=== PATIENT | female | born 1990 | race Caucasian/White ===

== ENCOUNTER 2017-08-07 08:00 | Outpatient (CLI) | payer BC | END 2017-08-07 08:01 | disposition home or self-care (01) | LOC: LAB.R 08:00 | PROVIDERS: ATTEND Obstetrics & Gynecology | DX: Z11.3 Encounter for screening for infections with a predominantly sexual mode of transmission (principal) | CPT/HCPCS: 87491; 87591 ==

== ENCOUNTER 2017-10-08 09:49 | Outpatient (CLI) | payer OTHER ==
[2017-10-08 14:22] VITALS: BP 107/65
--- NOTE | 2017-11-01 12:31 | PROVIDER PROGRESS NOTE ---
Subjective - Prog Note Date Prog Note Date: 10/08/17 Prog Note Time: 12:00 - Subjective Pt reports feeling: Improved (Pamela is a 27-year-old CaucasianPrimigravida at 21 weeks 4 days gestation who experienced a fall that did not involve her abdomen or uterus. She has no suspicion of leaking fluid and no regular uterine contractions.She was evaluated and there was no uterine tenderness or contractions noted. heart tracing category 1. Evaluation the patient finds no orthopedic or significant injury. Maternal blood type Rh+. Patient instructed to keep her next routine appointment. Warning sign and callback instructions given.)
== END 2017-10-08 11:55 | disposition home or self-care (01) ==
LOC: WFO 09:49 → FBP 10:20 → WFO 11:55
PROVIDERS: ATTEND Obstetrics & Gynecology
DX: O9A.212 Injury, poisoning and certain other consequences of external causes complicating pregnancy, second trimester (principal); Z3A.21 21 weeks gestation of pregnancy
CPT/HCPCS: 99213

== ENCOUNTER 2017-10-18 07:28 | Outpatient (CLI) | payer OTHER ==
--- NOTE | 2017-10-19 08:46 | Ultrasound Report ---
OB ULTRASOUND: 10/18/2017 CLINICAL INDICATION: anatomy. COMPARISON: 07/04/2017. TECHNIQUE: Real-time scanning was performed with c s s representative static images obtained. LAST MENSTRUAL PERIOD 05/10/2017 CLINICAL AGE 23 weeks 0 days US AGE 23 weeks 0 days EFW HADLOCK 578 grams EFW% HADLOCK 55% HEART RATE 154 bpm EDC 02/14/2018 US EDC 02/14/2018 BPD HADLOCK 22 weeks 3 days; Mean mm 54 HC HADLOCK 22 weeks 6 days; Mean mm 208 AC HADLOCK 22 weeks 6 days; Mean mm 180 FL HADLOCK 24 weeks 0 days; Mean mm 43 PRESENTATION cephalic PLACENTAL LOCATION anterior CERVICAL LENGTH TA 4.2 cm AMNIOTIC FLUID 13.9 cm, subjectively normal; MVP 4.6 cm FINDINGS There is a single viable intrauterine gestation, in cephalic presentation. heart rate is 154 BPM. The placenta is anterior, without evidence of previa. Amniotic fluid volume is subjectively normal, with the deepest pocket of 4.6 cm. By size, the fetus measures 23 weeks 0 days (23 weeks 0 days by LMP). The following anatomic structures were visualized and appear normal: The intracranial contents, including the ventricles and posterior fossa; the lips and orbits; the spine; the heart, including 4 chamber view and outflow tracts, and diaphragm; the abdominal contents, including the stomach, the bilateral kidneys, and urinary bladder, as well as a normal 3 vessel cord insertion; 4 limbs. Note is made of an echogenic focus in the left ventricle. No free fluid or adnexal lesion is appreciated. IMPRESSION: SINGLE VIABLE INTRAUTERINE GESTATION, WITH EXPECTED GROWTH FROM PREVIOUS SONOGRAM. SOLITARY ECHOGENIC FOCUS IN THE LEFT VENTRICLE. OTHERWISE NORMAL ANATOMIC SURVEY. ONE SOFT MARKER FOR ANEUPLOIDY IS DETECTED. RECOMMEND CORRELATION WITH MATERNAL AGE, ETHNICITY, AND ANEUPLOIDY RISK ASSESSMENT RESULTS SUCH SERUM SCREENING OR CELL FREE DNA TESTING TO HELP GUIDE FURTHER MANAGEMENT. TD: 10/18/2017 16:03 MADYSON
== END 2017-10-18 07:29 | disposition home or self-care (01) ==
LOC: DI 07:28
PROVIDERS: ATTEND Obstetrics & Gynecology
DX: Z36.0 Encounter for antenatal screening for chromosomal anomalies (principal)
CPT/HCPCS: 76811

== ENCOUNTER 2017-11-08 16:34 | Outpatient (CLI) | payer SELFPAY | END 2017-11-08 16:35 | disposition home or self-care (01) | LOC: LAB 16:34 | PROVIDERS: ATTEND Obstetrics & Gynecology | DX: O35.1XX0 Maternal care for (suspected) chromosomal abnormality in fetus, not applicable or unspecified (principal) | CPT/HCPCS: 36415 ==

== ENCOUNTER 2017-11-30 09:46 | Outpatient (CLI) | payer OTHER ==
[2017-11-30 12:49] LABS: BILIRUBIN,URINE NEGATIVE (NEGATIVE); GLUCOSE, URINE (UA) NEGATIVE (NEGATIVE); KETONES,URINE (UA) NEGATIVE (NEGATIVE); LEUKOCYTE ESTERASE, URINE NEGATIVE (NEGATIVE); NITRITE,URINE NEGATIVE (NEGATIVE); OCCULT BLOOD,URINE NEGATIVE (NEGATIVE); PH,URINE 6.5 PH (5.0-7.5); PROTEIN,URINE NEGATIVE (NEGATIVE); UROBILINOGEN,URINE 0.2 (NORMAL) E.U./dL (NORMAL)
[2017-11-30 12:50] LABS: CLARITY,URINE CLEAR (CLEAR)
[2017-11-30 12:54] LABS: BASOPHILS % (AUTO) 0.4 %; EOSINOPHILS # (AUTO) 0.2 10^3/uL (0.0-0.7); EOSINOPHILS % (AUTO) 1.7 %; HGB - HEMOGLOBIN 10.4 g/dL (12.0-16.0); LYMPHOCYTES # (AUTO) 2.1 10^3/uL (1.5-3.5); LYMPHOCYTES % (AUTO) 18.9 %; MEAN CORPUSCULAR HEMOGLOBIN 33.1 pg (27.0-31.0); MEAN CORPUSCULAR HGB CONC 34.9 g/dL (32.0-36.0); MEAN CORPUSCULAR VOLUME 94.7 fL (81.0-99.0); MEAN PLATELET VOLUME 8.6 fL (7.9-10.8); MONOCYTES # (AUTO) 0.6 10^3/uL (0.0-1.0); MONOCYTES % (AUTO) 5.4 %; NEUTROPHILS # (AUTO) 8.1 10^3/uL (1.5-6.6); NEUTROPHILS % (AUTO) 73.6 %; PLT - PLATELET COUNT 262 10^3/uL (130-450); RED BLOOD COUNT 3.15 10^6/uL (4.20-5.40); RED CELL DISTRIBUTION WIDTH 13.6 % (12.0-15.0)
[2017-11-30 12:57] LABS: RBC,URINE 0-5 /HPF (0-5); SQUAMOUS EPITHELIAL CELL,UR FEW Squamous (<= Few)
[2017-11-30 12:58] LABS: BACTERIA,URINE Rare /HPF (None Seen)
[2017-12-01 13:21] LABS: HIV AG/AB 4TH GEN NON-REACTIVE (NON-REACTIVE)
[2017-12-01 13:22] LABS: HEPATITIS B SURFACE ANTIGEN NON-REACTIVE (NON-REACTIVE)
== END 2017-11-30 09:47 | disposition home or self-care (01) ==
LOC: LAB.N 09:46
PROVIDERS: ATTEND Obstetrics & Gynecology
DX: Z36.9 Encounter for antenatal screening, unspecified (principal)
CPT/HCPCS: 36415; 81001; 81599; 82950; 85025; 86592; 86762; 86850; 86900; 86901; 87340; 87389

== ENCOUNTER 2017-12-19 13:59 | Emergency (ER) | payer OTHER ==
[2017-12-19 14:22] VITALS: BP 112/71
[2017-12-19] MEDS ORDERED: SODIUM CHLORIDE 0.9% 1,000 ML IV ONE (14:29)
[2017-12-19] MEDS ORDERED: ONDANSETRON 4 MG/2 ML VIAL IVP STA (14:29)
[2017-12-19] MEDS ORDERED: LOPERAMIDE 2 MG CAPSULE PO STA (14:29)
--- NOTE | 2017-12-19 14:34 | ED Physician Documentation ---
PD HPI NVD - Stated complaint Stated Complaint: N/V/D 32 WKS PREG - Chief complaint Chief Complaint: Abd Pain - History obtained from History obtained from: Patient - History of Present Illness Timing - onset: Other ( at 32 weeks gestation with vomiting and diarrhea for the last 3 days, there is no pain or fever with it. She started to feel little weak and dizzy with it. She also notes slightly decreased kicking , not so much in frequency but in force. There is no vaginal bleeding or cramping, no fluid loss.) Review of Systems Ten Systems: 10 systems reviewed and negative Constitutional: reports: Fatigue. denies: Fever, Chills Respiratory: denies: Dyspnea, Cough GI: reports: Nausea, Vomiting, Diarrhea. denies: Abdominal Pain PD PAST MEDICAL HISTORY - Past Medical History Cardiovascular: None Respiratory: None Neuro: None Endocrine/Autoimmune: None GI: None ELECTRICIAN SHIP: None : None HEENT: None Psych: ADD/ADHD Musculoskeletal: None Derm: None - Past Surgical History Past Surgical History: No - Present Medications Home Medications: Ambulatory Orders Medication Instructions Recorded Confirmed Acetaminophen [Tylenol] 325 mg PO PRN PRN 12/19/17 12/19/17 Pnv95/Ferrous Fumarate/FA 1 tab PO DAILY 12/19/17 12/19/17 [ Tablet] - Allergies Allergies/Adverse Reactions: Allergies Allergy/AdvReac Type Severity Reaction Status Date / Time No Known Drug Allergies Allergy Verified 12/19/17 14:22 - Social History Does the pt smoke?: Yes Smoking Status: Current every day smoker Does the pt drink ETOH?: Yes Does the pt have substance abuse?: No - Immunizations Immunizations are current?: Yes - POLST Patient has POLST: No PD ED PE NORMAL - Vitals Vital signs reviewed: Yes - General General: Alert and oriented X 3, No acute distress - Cardiac Cardiac: RRR, No murmur - Respiratory Respiratory: No respiratory distress, Clear bilaterally - Abdomen Abdomen: Normal bowel sounds, Soft, Non tender, Other (Gravid belly with bedside ultrasound showing single live intrauterine with heart rate of 140.) - Extremities Extremities: No edema, No calf tenderness / cord - Neuro Neuro: Alert and oriented X 3, Normal speech Results - Vitals Vitals: Vital Signs - 24 hr 12/19/17 14:19 Temperature 36.8 C Heart Rate 71 Respiratory 16 Rate Blood Pressure 112/71 O2 Saturation 98 Oxygen O2 Source Room air - Labs Labs: Laboratory Tests 12/19/17 12/19/17 12/19/17 14:35 14:35 15:15 WBC 12.6 H RBC 3.47 L Hgb 10.9 L Hct 31.7 L MCV 91.5 MCH 31.6 H MCHC 34.5 RDW 14.1 Plt Count 270 MPV 7.6 L Neut # 9.7 H Lymph # 2.1 [place] # 0.7 Eos # 0.1 Baso # 0.0 Absolute Nucleated RBC 0.00 Nucleated RBC % 0.0 Sodium 133 L Potassium 3.5 Chloride 104 Carbon Dioxide 22 Anion Gap 7.0 BUN 5 L Creatinine 0.5 Estimated GFR (MDRD) 148 Glucose 103 H Calcium 8.5 Total Bilirubin 0.8 AST 45 H ALT 28 Alkaline Phosphatase 88 Total Protein 7.0 Albumin 3.4 Globulin 3.6 Albumin/Globulin Ratio 0.9 L Lipase 14 L Urine Color YELLOW Urine Clarity CLEAR Urine pH 8.0 H Ur Specific [place] 1.010 Urine Protein 30 H Urine Glucose (UA) NEGATIVE Urine Ketones 15 H Urine Occult Blood NEGATIVE Urine Nitrite NEGATIVE Urine Bilirubin NEGATIVE Urine Urobilinogen 0.2 (NORMAL) Ur Leukocyte Esterase NEGATIVE Urine RBC None Seen Urine WBC 0-3 Ur Epithelial Cells RARE Transitional Ur Squamous Epith Cells FEW Squamous Urine Bacteria Rare Urine Mucus Few Strands Ur Microscopic Review INDICATED Urine Culture Comments NOT INDICATED Urine Opiates Screen NEGATIVE Ur Oxycodone Screen NEGATIVE Urine Methadone Screen NEGATIVE Ur Propoxyphene Screen NEGATIVE Ur Barbiturates Screen NEGATIVE Ur Tricyclics Screen NEGATIVE Ur Phencyclidine Scrn NEGATIVE Ur Amphetamine Screen NEGATIVE U Methamphetamines Scrn NEGATIVE U Benzodiazepines Scrn NEGATIVE Urine Cocaine Screen NEGATIVE U Cannabinoids Screen POSITIVE H PD MEDICAL DECISION MAKING - ED course ED course: 27-year-old G1 at 32 weeks gestation who presents with what sounds like gastroenteritis, monitoring was done reported to me as having every 2-3 minute contractions, OB was contacted and she will be going in observation on labor and delivery under the care of Dr. Hernandez for a labor evaluation. From the perspective of her apparent gastroenteritis she was feeling much better after therapy here. Departure - Departure Disposition: ED Place in Observation Clinical Impression: contractions Vomiting Qualifiers: Vomiting type: unspecified Vomiting Intractability: non-intractable Nausea presence: with nausea Qualified Code(s): R11.2 - Nausea with vomiting, unspecified Diarrhea Qualifiers: Diarrhea type: presumed infectious Qualified Code(s): R19.7 - Diarrhea, unspecified Condition: Stable Discharge Date/Time: 12/19/17 15:26
[2017-12-19 14:46] LABS: BASOPHILS % (AUTO) 0.3 %; EOSINOPHILS # (AUTO) 0.1 10^3/uL (0.0-0.7); EOSINOPHILS % (AUTO) 0.5 %; HGB - HEMOGLOBIN 10.9 g/dL (12.0-16.0); LYMPHOCYTES # (AUTO) 2.1 10^3/uL (1.5-3.5); LYMPHOCYTES % (AUTO) 16.7 %; MEAN CORPUSCULAR HEMOGLOBIN 31.6 pg (27.0-31.0); MEAN CORPUSCULAR HGB CONC 34.5 g/dL (32.0-36.0); MEAN CORPUSCULAR VOLUME 91.5 fL (81.0-99.0); MEAN PLATELET VOLUME 7.6 fL (7.9-10.8); MONOCYTES # (AUTO) 0.7 10^3/uL (0.0-1.0); MONOCYTES % (AUTO) 5.7 %; NEUTROPHILS # (AUTO) 9.7 10^3/uL (1.5-6.6); NEUTROPHILS % (AUTO) 76.8 %; PLT - PLATELET COUNT 270 10^3/uL (130-450); RED BLOOD COUNT 3.47 10^6/uL (4.20-5.40); RED CELL DISTRIBUTION WIDTH 14.1 % (12.0-15.0); WHITE BLOOD COUNT 12.6 x10^3/uL (4.8-10.8)
[2017-12-19 14:57] LABS: ALBUMIN 3.4 g/dL (3.2-5.5); ALBUMIN/GLOBULIN RATIO 0.9 (1.0-2.2); BILIRUBIN,TOTAL 0.8 mg/dL (0.2-1.0); CALCIUM 8.5 mg/dL (8.5-10.3); CREATININE 0.5 mg/dL (0.4-1.0)
[2017-12-19 15:23] LABS: MUDS CUTOFF CONCENTRATIONS CUTOFF CONC BELOW:
[2017-12-19 15:26] LABS: BILIRUBIN,URINE NEGATIVE (NEGATIVE); GLUCOSE, URINE (UA) NEGATIVE (NEGATIVE); KETONES,URINE (UA) 15 mg/dL (NEGATIVE); LEUKOCYTE ESTERASE, URINE NEGATIVE (NEGATIVE); NITRITE,URINE NEGATIVE (NEGATIVE); OCCULT BLOOD,URINE NEGATIVE (NEGATIVE); PROTEIN,URINE 30 mg/dL (NEGATIVE); UROBILINOGEN,URINE 0.2 (NORMAL) E.U./dL (NORMAL)
[2017-12-19 15:30] LABS: CLARITY,URINE CLEAR (CLEAR)
[2017-12-19 15:39] LABS: BACTERIA,URINE Rare /HPF (None Seen); EPITHELIAL CELLS,UR RARE Transitional /HPF (<= Few); MUCUS,URINE Few Strands; RBC,URINE None Seen /HPF (0-5); SQUAMOUS EPITHELIAL CELL,UR FEW Squamous (<= Few)
[2017-12-19 15:40] LABS: AMPHETAMINE SCREEN,URINE NEGATIVE (NEGATIVE); BENZODIAZEPINES SCREEN, URINE NEGATIVE (NEGATIVE); COCAINE SCREEN URINE NEGATIVE (NEGATIVE); METHADONE SCREEN, URINE NEGATIVE (NEGATIVE); METHAMPHETAMINES SCREEN, URINE NEGATIVE (NEGATIVE); OPIATE SCREEN, URINE NEGATIVE (NEGATIVE); OXYCODONE SCREEN, URINE NEGATIVE (NEGATIVE); PROPOXYPHENE SCREEN, URINE NEGATIVE (NEGATIVE); TRICYCLIC ANTIDEPRESSANT,URINE NEGATIVE (NEGATIVE)
== END 2017-12-19 15:26 ==
LOC: ED 13:59
DX: O60.03 Preterm labor without delivery, third trimester (principal); O36.8130 Decreased fetal movements, third trimester, not applicable or unspecified; O99.333 Smoking (tobacco) complicating pregnancy, third trimester; Z3A.32 32 weeks gestation of pregnancy; R11.2 Nausea with vomiting, unspecified; R19.7 Diarrhea, unspecified
CPT/HCPCS: 36415; 80053; 80306; 81001; 81003; 83690; 85025; 87086; 96374; 99283; 99284

== ENCOUNTER 2017-12-19 15:15 | Observation (INO) | payer OTHER ==
[2017-12-19] MEDS ORDERED: BETAMETHASONE 30 MG/5 ML VIAL IM ONE (15:39)
[2017-12-19] MEDS ORDERED: LACTATED RINGERS 1,000 ML IV SCH ×3 (16:00→21:09)
[2017-12-19] MEDS ORDERED: SODIUM CHLORIDE FLUSH 0.9% 10 ML SYRINGE IVP PRN (16:46)
[2017-12-19] MEDS ORDERED: ACETAMINOPHEN 325 MG TABLET PO PRN (16:46)
[2017-12-19] MEDS ORDERED: ONDANSETRON ODT 4 MG TABLET TL PRN (16:46)
[2017-12-19] MEDS ORDERED: SODIUM CHLORIDE FLUSH 0.9% 10 ML SYRINGE IVP SCH (17:00)
--- NOTE | 2017-12-19 17:03 | Ultrasound Preliminary Report ---
Exam: US OB TRANSVAGINAL IMPRESSION: 1. Diego live intrauterine with gestational age 31 weeks 6 days based on establish KAROL. 2. Closed cervix measures 3.6 cm on transvaginal imaging. [facility] SITE ID: [id number]
--- NOTE | 2017-12-19 17:27 | Ultrasound Report ---
EXAM: LIMITED OBSTETRICAL ULTRASOUND EXAM DATE: 12/19/2017 04:15 PM. CLINICAL HISTORY: ctx. COMPARISON: 10/18/2017. TECHNIQUE: Real-time sonographic evaluation of the fetus performed by the card runner. Multiple repre sentative static images were saved for review. Additional transvaginal imaging to more accurately annie luate cervical length/placental position/etc. DATING: Established EGA 31 weeks 6 days with KAROL 02/14/2018. GENERAL EVALUATION Diego . Cardiac activity: 127 bpm. movement: Not evaluated. Presentation: Cephalic. Placenta: Anterior placenta. Incompletely characterized. Amniotic fluid: Not evaluated. ANATOMY No gross abnormality. MATERNAL STRUCTURES Closed cervix measures 3.6 cm on the transvaginal imaging. IMPRESSION: 1. Diego live intrauterine with gestational age 31 weeks 6 days based on establish KAROL. 2. Closed cervix measures 3.6 cm on transvaginal imaging. [facility] Referring Provider Line: [phone] SITE ID: [id number]
--- NOTE | 2017-12-19 18:05 | HISTORY & PHYSICAL EXAMINATION ---
DATE OF SERVICE: 12/19/2017 Physician: Fer Hernandez MD DIAGNOSIS: Unremitting nausea and vomiting or dehydration, diarrhea, probable viral gastroenteritis; Uterine Contractions. HISTORY OF PRESENT ILLNESS: Pamela Forde is a 27-year-old primigravida who reports approximately 24 hours of diarrhea, nausea and nonbilious, nonbloody vomiting. She reports no macey abdominal pain or fever. She does feel weak and has some orthostatic dizziness. Her parents were visiting from out of town and had viral enteritis roughly a week ago. She is discovered to be mary jane. She has no pelvic pressure, loss of mucus plug or suspected rupture of membranes. [facility] with a total of 5 visits thus far. Her EDC is 01/14/2018 with an estimated gestational age of 31 weeks and 6 days. The patient evaluated in the emergency room and given Imodium and Zofran. PAST MEDICAL HISTORY: The patient denies gallbladder disease, history of renal lithiasis, history of depression. Reformed smoker. PAST SURGICAL HISTORY: No surgical problems. FAMILY HISTORY: No inheritable diseases. SOCIAL HISTORY: Recently . Reformed smoker. No drug or alcohol use. 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 Denies fever or rigors. HEENT: Negative. RESPIRATORY: Negative. CARDIAC: Negative. GASTROINTESTINAL: Nausea, vomiting, diarrhea as noted above. NEUROLOGIC: Negative. SKIN: Negative. MUSCULOSKELETAL: Negative. PHYSICAL EXAMINATION GENERAL: The patient seems ill. VITAL SIGNS: Posted. HEENT: Dry mucous membranes. Poor skin tone. NECK: Supple. No thyromegaly. LUNGS: Clear to auscultation. CARDIOVASCULAR: Regular flow murmur. No rub or gallop. ABDOMEN: Hyperactive bowel sounds. No hepatosplenomegaly. No remarkable present tenderness. UTERUS: Appropriate size. Mild contractions every 3 minutes. Normal resting tone. EXTERNAL GENITALIA: With no lesions. VAGINA: No blood or fluid. CERVIX: Soft anterior, 30% effaced, closed, -1 to 0 station. GENITOURINARY: No signs or symptoms suggestive of labor. EXTREMITIES: No [place]. Normal range of motion. No tenderness or edema noted. DERMATOLOGIC: No lesions. LABORATORY FINDINGS: fibronectin negative. Mild leukocytosis. Lipase elevated. ASSESSMENT: The patient is suspected to have a viral gastroenteritis with resultant dehydration triggering labor contractions. fibronectin is negative, which gives some reassurance; however, clinical exam shows effacement and changes in cervical position that warrants caution. Await cervical length measurements. PLAN 1. Begin rehydration with lactated ringers, 1 liter bolus, followed by 200 an hour. 2. Begin observation. 3. Await cervical length measurements. 4. Supportive care. TD: 12/19/2017 18:04 corrected acct on 12/21/2017 jneelle MTDD
--- NOTE | 2017-12-19 18:48 | PROVIDER PROGRESS NOTE ---
Subjective - Prog Note Date Prog Note Date: 12/19/17 Prog Note Time: 18:45 - Subjective Pt reports feeling: No change (Patient continues to feel a "rolling sensation inside." She denies spastic pain or macey uterine contractions. There is been no reported leakage of fluid. She has no headaches visual changes or edema. She feels improved after the first liter fluid) Objective - Vital Signs/Intake & Output Vital Signs: Vital Signs x48h Temp Pulse Resp BP Pulse Ox 12/19/17 16:56 98.2 F 73 16 112/58 L 98 Intake & Output: Intake & Output 12/16/17 12/17/17 12/18/17 12/19/17 23:59 23:59 23:59 23:59 Intake Total 1000 Output Total 300 Balance 700 - Lab Results Other Labs: Lab Results x24hrs 12/19/17 Range/Units 15:45 Fibronectin NEGATIVE (NEGATIVE) Physical Exam - Physical Exam General: positive: No acute distress, Alert HEENT: positive: Moist mucous membranes Neck: positive: Supple w/out meningeal sx Abdomen: positive: Normal Bowel sounds, Other (Uterus has normal resting tone and minimal contractions. External monitor shows a reactive fetus with heart tones 135 baseline however there are contractions noted every 3 minutes) Female : positive: Normal external, Dilated cervix (Cervix is now 1 cm dilated 50% effaced and -1 station. This is a subtle change from her baseline exam), Monitor Worker present Extremities: positive: Normal ROM, No pedal edema Skin: positive: Warm and dry Neurologic: positive: Alert and Oriented X 3, Normal motor/no weakness, Normal Sensation, Normal Speech Assessment/Plan - Assessment/Plan Assessment: Mrs Forde has a 31 week 6 day gestation and continues to have regular uterine contractions albeit mild by palpation. Since her baseline exam, there are changes in the cervix suggestive of effective contractions. There is no obvious source of infection to explain her contractions. fibronectin is negative, a good prognosticator. Likewise, cervical length is 3.6 cm which is normal. Note these measurements were taken at 1630 and 2-1/2 hours have elapsed. Beyond IV fluid hydration, Tocolysis is now required. Patient has received her first dose of betamethasone. Plan: 1. Terbutaline 0.25 subcu every 30 minutes for 3 doses total if necessary 2. Nifedipine 20 mg regular release oral with nifedipine 60 mg slow release. 3. Continued close observation and repeat exam
[2017-12-19] MEDS ORDERED: TERBUTALINE 1 MG/ML VIAL SUBQ ONE (18:49)
[2017-12-19] MEDS ORDERED: TERBUTALINE 1 MG/ML VIAL SUBQ SCH (19:05)
[2017-12-19] MEDS ORDERED: NIFEdipine 10 MG CAPSULE PO ONE (20:00)
[2017-12-19] MEDS ORDERED: NIFEdipine 10 MG CAPSULE PO SCH ×2 (20:00)
[2017-12-19] MEDS ORDERED: NIFEdipine ER 30 MG TABLET PO SCH (20:00)
--- NOTE | 2017-12-19 21:41 | PROVIDER PROGRESS NOTE ---
Subjective - Prog Note Date Prog Note Date: 12/19/17 Prog Note Time: 21:40 - Subjective Pt reports feeling: Improved Subjective: Patient no longer reports contractions. There is no suspected leakage of fluid. Her nausea and vomiting have ceased. She feels well overall and strongly desires discharge home. She has reliable transportation and pledges to return if contractions re-ensue Objective - Vital Signs/Intake & Output Vital Signs: Vital Signs x48h Temp Pulse Resp BP Pulse Ox 12/19/17 18:47 85 16 126/69 98 12/19/17 16:56 98.2 F 73 16 112/58 L 98 Intake & Output: Intake & Output 12/16/17 12/17/17 12/18/17 12/19/17 23:59 23:59 23:59 23:59 Intake Total 1000 Output Total 300 Balance 700 - Lab Results Other Labs: Lab Results x24hrs 12/19/17 Range/Units 15:45 Fibronectin NEGATIVE (NEGATIVE) Exam - Exam Vital Signs: Vital Signs (72 hours) 12/19/17 12/19/17 16:56 18:47 Temperature 98.2 F Heart Rate [ 73 85 Monitoring electrodes] Respiratory 16 16 Rate Blood Pressure 112/58 L 126/69 [Left Brachial artery] O2 Saturation 98 98 General: Alert, Oriented x3, No acute distress HEENT: Mucous membr. moist/pink Abdomen: Soft, Other (Careful palpation of the abdominal wall and uterus find no uterine contractions. Tocodynamometer also shows no uterine contractions category 1 strip baseline 140) Extremities: No edema Skin: No rashes Neurological: Normal speech, Sensation intact Psych/Mental Status: Mental status NL, Mood NL Assessment/Plan - Assessment/Plan Assessment: Patient's nausea and vomiting have ceased and her fluid balance is been corrected with IV boluses. Her contractions of also ceased with the aid of terbutaline and nifedipine. At this point patient is stable and could be discharged. Plan: 1. Discharge home this evening. 2. Patient to return tomorrow for second dose of betamethasone and NST. 3. Warning sign and callback instructions given. 4. I chose not to continue nifedipine or terbutaline. 5. Patient was given a work excuse until Sunday.
[2017-12-19 22:24] VITALS: BP 117/61
[2017-12-20] MEDS ORDERED: POLYETHYLENE GLYCOL 3350 17 GM PACKET PO SCH (09:00)
[2017-12-20] MEDS ORDERED: BETAMETHASONE 30 MG/5 ML VIAL IM ONE (17:00)
== END 2017-12-19 22:00 | disposition home or self-care (01) ==
LOC: WFO 15:15 → FBP 15:19 → WFO 16:45 → FBP 16:46
PROVIDERS: ADMIT Obstetrics & Gynecology; ATTEND Obstetrics & Gynecology
DX: O60.03 Preterm labor without delivery, third trimester (principal); O21.2 Late vomiting of pregnancy; O99.283 Endocrine, nutritional and metabolic diseases complicating pregnancy, third trimester; Z3A.31 31 weeks gestation of pregnancy; E86.0 Dehydration; Z87.891 Personal history of nicotine dependence; O36.8130 Decreased fetal movements, third trimester, not applicable or unspecified; R19.7 Diarrhea, unspecified
CPT/HCPCS: 36415; 76817; 80053; 80306; 81001; 82731; 83690; 85025; 96361; 96372; 96374; 99214; 99284; A9270; G0378; J7120; 81003; 87086; 96366; 99283

== ENCOUNTER 2017-12-20 17:11 | Outpatient (CLI) | payer OTHER ==
[2017-12-20 17:55] VITALS: BP 102/72
[2017-12-20] MEDS ORDERED: BETAMETHASONE 30 MG/5 ML VIAL IM ONE (18:00)
== END 2017-12-20 18:26 | disposition home or self-care (01) ==
LOC: WFO 17:11 → FBP 17:14 → WFO 18:26
PROVIDERS: ATTEND Obstetrics & Gynecology
DX: O60.03 Preterm labor without delivery, third trimester (principal); Z3A.32 32 weeks gestation of pregnancy
CPT/HCPCS: 59025; 87077; 87081; 96372

== ENCOUNTER 2017-12-24 08:00 | Outpatient (CLI) | payer OTHER | END 2017-12-24 23:59 | LOC: LAB.R 08:00 | PROVIDERS: ATTEND Obstetrics & Gynecology | DX: R82.90 Unspecified abnormal findings in urine (principal) | CPT/HCPCS: 87086 ==

== ENCOUNTER 2018-02-10 16:58 | Inpatient (IN) | payer OTHER ==
[2018-02-10 17:46] LABS: BASOPHILS % (AUTO) 0.3 %; EOSINOPHILS # (AUTO) 0.1 10^3/uL (0.0-0.7); EOSINOPHILS % (AUTO) 1.1 %; HGB - HEMOGLOBIN 10.2 g/dL (12.0-16.0); LYMPHOCYTES # (AUTO) 2.2 10^3/uL (1.5-3.5); LYMPHOCYTES % (AUTO) 21.4 %; MEAN CORPUSCULAR HEMOGLOBIN 30.9 pg (27.0-31.0); MEAN CORPUSCULAR HGB CONC 33.8 g/dL (32.0-36.0); MEAN CORPUSCULAR VOLUME 91.3 fL (81.0-99.0); MEAN PLATELET VOLUME 8.6 fL (7.9-10.8); MONOCYTES # (AUTO) 0.6 10^3/uL (0.0-1.0); MONOCYTES % (AUTO) 5.9 %; NEUTROPHILS # (AUTO) 7.2 10^3/uL (1.5-6.6); NEUTROPHILS % (AUTO) 71.3 %; PLT - PLATELET COUNT 263 10^3/uL (130-450); RED BLOOD COUNT 3.31 10^6/uL (4.20-5.40); RED CELL DISTRIBUTION WIDTH 16.1 % (12.0-15.0); WHITE BLOOD COUNT 10.1 x10^3/uL (4.8-10.8)
[2018-02-10] MEDS ORDERED: SODIUM CHLORIDE FLUSH 0.9% 10 ML SYRINGE ONE (18:57)
[2018-02-10] MEDS: SODIUM CHLORIDE FLUSH 0.9% 10 ML SYRINGE ONE (19:32)
[2018-02-10] MEDS ORDERED: fentaNYL 250 MCG/5 ML VIAL IVP PRN (20:42)
[2018-02-10] MEDS ORDERED: AMPICILLIN 2 GM in SODIUM CHLORIDE 0.9% MINIBAG 100 ML IV SCH ×4 (21:00)
--- NOTE | 2018-02-10 21:01 | HISTORY & PHYSICAL EXAMINATION ---
Chief Complaint - Chief Complaint Chief Complaint: Contractions History of Present Illness - Admitted From Admitted From:: Home to [facility] - History Obtained From Records Reviewed: YES History obtained from: PATIENT Exam Limitations: NONE - History of Present Illness HPI Comment/Other: 27 y.o. EDC 02/14/18 EGA 39 3/7 weeks admitted in early labor at 3/70/-3/VTX , BOWI (2209 hours) with Category I tracing, GBS +. She was previously scheduled to come in for cervical ripening but found to be mary jane q2-4 min. spontaneously and with favorable cervix. Admitted for delivery. PNC has been essentially unremarkable except for the following: # Isolated echogenic cardiac focus, normal harmony testing #GERD: Zantac qd # Pap ASC cannot exclude HSIL: High Risk HPV testing negative # RUBELLA NON-IMMUNE Labs: (08/06/17 and 08/07/17): MBT O POS PNAS NEG GC/CT NEG X 2 (11/30/17): HCT 29.8 PLT 262 RPR NR RUBELLA NON-IMMUNE HBSAG NR HIV NEG UA NEG 1 HR GTT 73 TDAP GIVEN 12/11/17 (12/26/17) GBS POS History - Past Medical History Cardiovascular: reports: None Respiratory: reports: None Neuro: reports: None Endocrine/Autoimmune: reports: None GI: reports: GERD TAX PREPARER: reports: None : reports: None HEENT: reports: None Psych: reports: None Musculoskeletal: reports: None Derm: reports: None MRSA Hx?: No - Past Surgical History Other past surgical history: NONE - Substance History Use: Uses substance without health or social issues: Other (SMALL ETOH USE AT BEGINNING OF , NO SMOKING/ETOH/DRUGS SINCE) - POLST Patient has POLST: No POLST Status: Full Code Meds/Allgy - Home Medications Home Medications: Ambulatory Orders Medication Instructions Recorded Confirmed Acetaminophen [Tylenol] 325 mg PO PRN PRN 12/19/17 12/19/17 Pnv95/Ferrous Fumarate/FA 1 tab PO DAILY 12/19/17 12/19/17 [ Tablet] - Allergies Allergies/Adverse Reactions: Allergies Allergy/AdvReac Type Severity Reaction Status Date / Time No Known Drug Allergies Allergy Verified 12/19/17 14:22 Review of Systems - All Other Systems All Other Systems: reports: Reviewed and negative (ROS NEGATIVE FOR ALL SYSTEMS. ONLY ILLICITED COMPLAINTS ARE MILD-MOD CONTRACTIONS) Exam - Physical Exam General Appearance: positive: No acute distress, Alert Eyes Bilateral: positive: Normal inspection ENT: positive: ENT inspection nml Neck: positive: Nml inspection Respiratory: positive: Chest non-tender, No respiratory distress, Breath sounds nml Cardiovascular: positive: Regular rate & rhythm, No murmur, No gallop Peripheral Pulses: positive: 2+ Abdomen: positive: Non-tender Back: positive: Nml inspection Skin: positive: Color nml, No rash, Warm Extremities: positive: Non-tender, Full ROM, Nml appearance Neurologic/Psychiatric: positive: Oriented x3 Conclusion/Plan - Lab Results Fish Bones: 02/10/18 17:35 Core Measures - Anticipated LOS I expect patient to be DC'd or transferred within 96 hours.: Yes - Issues Hospital Issues and Management Plan: IMPRESSION/PLAN: 39 3/7 WEEKS IN EARLY LABOR, CATEGORY I TRACING, LEOPOLDS 7 1/2 LBS. GBS + WILL RX IN LABOR WITH AMPICILLIN EXPECTANT MANAGEMENT LABOR ANALGESIA FENTANYL PRN UNTIL PATIENT OPTS FOR EPIDURAL WHICH SHE DESIRES SEE ORDERS.
[2018-02-10] MEDS: SODIUM CHLORIDE FLUSH 0.9% 10 ML SYRINGE IVP SCH ×2 (21:24→22:34)
[2018-02-11] MEDS: AMPICILLIN 1 GM in SODIUM CHLORIDE 0.9% MINIBAG 100 ML IV SCH ×4 (01:37→13:52)
[2018-02-11] MEDS: SODIUM CHLORIDE FLUSH 0.9% 10 ML SYRINGE IVP PRN ×3 (02:11→10:38)
[2018-02-11] MEDS ORDERED: ONDANSETRON 4 MG/2 ML VIAL IVP PRN (06:50)
[2018-02-11] MEDS: SODIUM CHLORIDE FLUSH 0.9% 10 ML SYRINGE IVP SCH (09:56)
[2018-02-11] MEDS: LACTATED RINGERS 1,000 ML IV SCH ×3 (09:56→17:40)
[2018-02-11] MEDS ORDERED: OXYTOCIN/SODIUM CHLORIDE 500 ML IV SCH (10:00)
--- NOTE | 2018-02-11 12:10 | PROVIDER PROGRESS NOTE ---
Subjective - Prog Note Date Prog Note Date: 02/11/18 Prog Note Time: 12:06 - Subjective Subjective: OUTREACH REP: Patient with Category I tracing, on 2 mIU pitocin, regular and moderate intensity contractions q2-4 min. Cx 4/70/-3/BOWI. AROM clear at 1130 hours and IUPC placed. ANS notified regarding epidural. Continue pitocin augementation protocol to maintain adequate contractions. Objective - Vital Signs/Intake & Output Intake & Output: Intake & Output 02/08/18 02/09/18 02/10/18 02/11/18 23:59 23:59 23:59 23:59 Intake Total 100 300 Balance 100 300 - Lab Results Fish Bones: 02/10/18 17:35 Other Labs: Lab Results x24hrs 02/10/18 Range/Units 17:35 WBC 10.1 (4.8-10.8) x10^3/uL RBC 3.31 L (4.20-5.40) 10^6/uL Hgb 10.2 L (12.0-16.0) g/dL Hct 30.3 L (37.0-47.0) % MCV 91.3 (81.0-99.0) fL MCH 30.9 (27.0-31.0) pg MCHC 33.8 (32.0-36.0) g/dL RDW 16.1 H (12.0-15.0) % Plt Count 263 (130-450) 10^3/uL MPV 8.6 (7.9-10.8) fL Neut # (Auto) 7.2 H (1.5-6.6) 10^3/uL Lymph # (Auto) 2.2 (1.5-3.5) 10^3/uL [place] # (Auto) 0.6 (0.0-1.0) 10^3/uL Eos # (Auto) 0.1 (0.0-0.7) 10^3/uL Baso # (Auto) 0.0 (0.0-0.1) 10^3/uL Absolute Nucleated RBC 0.00 x10^3/uL Nucleated RBC % 0.0 /100WBC
[2018-02-11] MEDS ORDERED: fent/BUPIV 2 MCG/0.125% 250 ML EP ONE (12:36)
[2018-02-11] MEDS ORDERED: fentaNYL 100 MCG/2 ML VIAL ONE (15:34)
[2018-02-11] MEDS ORDERED: LIDOCAINE 1% 50 ML MDV ONE (16:12)
[2018-02-11] MEDS ORDERED: miSOPROStol 200 MCG TABLET ONE (16:12)
[2018-02-11] MEDS ORDERED: MINERAL OIL LIGHT 10 ML MC ONE (16:12)
[2018-02-11] MEDS ORDERED: SODIUM CHLORIDE FLUSH 0.9% 10 ML SYRINGE IVP SCH (17:00)
--- NOTE | 2018-02-11 17:27 | PROVIDER PROGRESS NOTE ---
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 Pitocin turned off due to prolonged decel, now resolved. Pitocin remains off. Category I tracing. Unable to push effectively due to epidural bolus prior. At 1720 hours still not able to push optimally. Will allow epidural to continue to wear off before pushing. Patient mary jane adequately off pitocin. Objective - Vital Signs/Intake & Output Intake & Output: Intake & Output 02/08/18 02/09/18 02/10/18 02/11/18 23:59 23:59 23:59 23:59 Intake Total 100 683.333 Balance 100 683.333 - Lab Results Fish Bones: 02/10/18 17:35 Other Labs: Lab Results x24hrs 02/10/18 Range/Units 17:35 WBC 10.1 (4.8-10.8) x10^3/uL RBC 3.31 L (4.20-5.40) 10^6/uL Hgb 10.2 L (12.0-16.0) g/dL Hct 30.3 L (37.0-47.0) % MCV 91.3 (81.0-99.0) fL MCH 30.9 (27.0-31.0) pg MCHC 33.8 (32.0-36.0) g/dL RDW 16.1 H (12.0-15.0) % Plt Count 263 (130-450) 10^3/uL MPV 8.6 (7.9-10.8) fL Neut # (Auto) 7.2 H (1.5-6.6) 10^3/uL Lymph # (Auto) 2.2 (1.5-3.5) 10^3/uL [place] # (Auto) 0.6 (0.0-1.0) 10^3/uL Eos # (Auto) 0.1 (0.0-0.7) 10^3/uL Baso # (Auto) 0.0 (0.0-0.1) 10^3/uL Absolute Nucleated RBC 0.00 x10^3/uL Nucleated RBC % 0.0 /100WBC
--- NOTE | 2018-02-11 17:51 | PROVIDER PROGRESS NOTE ---
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 Patient developed transient category II tracing with variable decels that responded to resuscitative measures. FSE placed by me at 1738 hours. Continue present care. Will have patient start pushing when able to do so. Objective - Vital Signs/Intake & Output Intake & Output: Intake & Output 02/08/18 02/09/18 02/10/18 02/11/18 23:59 23:59 23:59 23:59 Intake Total 100 1173.333 Balance 100 1173.333 - Lab Results Fish Bones: 02/10/18 17:35 Other Labs: Lab Results x24hrs 02/10/18 Range/Units 17:35 WBC 10.1 (4.8-10.8) x10^3/uL RBC 3.31 L (4.20-5.40) 10^6/uL Hgb 10.2 L (12.0-16.0) g/dL Hct 30.3 L (37.0-47.0) % MCV 91.3 (81.0-99.0) fL MCH 30.9 (27.0-31.0) pg MCHC 33.8 (32.0-36.0) g/dL RDW 16.1 H (12.0-15.0) % Plt Count 263 (130-450) 10^3/uL MPV 8.6 (7.9-10.8) fL Neut # (Auto) 7.2 H (1.5-6.6) 10^3/uL Lymph # (Auto) 2.2 (1.5-3.5) 10^3/uL [place] # (Auto) 0.6 (0.0-1.0) 10^3/uL Eos # (Auto) 0.1 (0.0-0.7) 10^3/uL Baso # (Auto) 0.0 (0.0-0.1) 10^3/uL Absolute Nucleated RBC 0.00 x10^3/uL Nucleated RBC % 0.0 /100WBC
[2018-02-11] MEDS ORDERED: METHYLERGONOVINE 0.2 MG/ML AMP IM PRN (19:42)
[2018-02-11] MEDS ORDERED: OXYTOCIN/SODIUM CHLORIDE 250 ML IV ONE ×2 (19:42→19:55)
[2018-02-11] MEDS ORDERED: HYDROcod/ACETAM 5/325 MG TABLET PO PRN (19:42)
[2018-02-11] MEDS ORDERED: HYDROCORTISONE/PRAMOXINE 10 GM PR PRN (19:55)
--- NOTE | 2018-02-11 20:07 | PROVIDER PROGRESS NOTE ---
Subjective - Prog Note Date Prog Note Date: 02/11/18 (DELIVERY NOTE) Prog Note Time: 19:57 - Subjective Subjective: DELIVERY NOTE: Patient progressed to C/C/+2 at 1555 hours. Delivered via outlet forceps at 1658 viable female infant with of 9/9. Baby placed on patient's abdomen. Cord clamped x 2 and cut after 1 min. score. Peds present at delivery. Cord segment for gases obtained. IV pitocin started. Placenta delivered spontaneously at 1904 hours. On exam of canal, noted to have superficial and BL and small PUL, 2 inch R distal vaginal sidewall laceration at 7 oclock, ending at introitus, 1 inch superficial right vular laceration at introitus continuation of vaginal sidewall lac. Internal portion of vaginal laceration repaired easily with running 3-0 vicryl. External extension of vaginal laceration repaired with running 3-0 monocryl. EBL 400 mL. Both mother and baby doing well. Verbal consent obtained for forceps delivery from patient prior to procedure. Forceps Delivery Details: Forceps Used: Dung ANS: Epidural: Station: 5/5+ station Position: KHADIJAH <45 degrees rotation Indication: Repetitive variable decelerations. Left and then right sided forceps blades placed without difficulty, placement confirmed by exam. Infant delivered on one set of push pulls. Time of traction forceps used approx. 15 seconds. No complications. Objective - Vital Signs/Intake & Output Intake & Output: Intake & Output 02/08/18 02/09/18 02/10/18 02/11/18 23:59 23:59 23:59 23:59 Intake Total 100 1173.333 Balance 100 1173.333 - Lab Results Fish Bones: 02/10/18 17:35
[2018-02-11] MEDS: DOCUSATE SODIUM 100 MG CAPSULE PO SCH (21:30)
[2018-02-11] MEDS: ACETAMINOPHEN 325 MG TABLET PO PRN (21:30)
[2018-02-11] MEDS: IBUPROFEN 800 MG TABLET PO PRN (21:30)
[2018-02-12] MEDS: ACETAMINOPHEN 325 MG TABLET PO PRN ×2 (01:41→05:35)
[2018-02-12] MEDS: IBUPROFEN 800 MG TABLET PO PRN ×3 (05:35→22:59)
[2018-02-12 05:45] LABS: BASOPHILS % (AUTO) 0.3 %; EOSINOPHILS # (AUTO) 0.1 10^3/uL (0.0-0.7); EOSINOPHILS % (AUTO) 0.9 %; HGB - HEMOGLOBIN 9.3 g/dL (12.0-16.0); LYMPHOCYTES # (AUTO) 2.3 10^3/uL (1.5-3.5); MEAN CORPUSCULAR HGB CONC 33.6 g/dL (32.0-36.0); MEAN CORPUSCULAR VOLUME 92.2 fL (81.0-99.0); MEAN PLATELET VOLUME 8.7 fL (7.9-10.8); MONOCYTES % (AUTO) 7.1 %; NEUTROPHILS # (AUTO) 10.2 10^3/uL (1.5-6.6); NEUTROPHILS % (AUTO) 74.7 %; PLT - PLATELET COUNT 191 10^3/uL (130-450); RED BLOOD COUNT 2.99 10^6/uL (4.20-5.40); WHITE BLOOD COUNT 13.6 x10^3/uL (4.8-10.8)
--- NOTE | 2018-02-12 09:44 | PROVIDER PROGRESS NOTE ---
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 S: No complaints, doing well, tolerrating diet. O: VSS/AF ABD SNT, UX firm U-6 : normal Lochia MS/NM: N/C A/P: Patient doing well Continue present care. Anticipate discharge home tomorrow. Objective - Vital Signs/Intake & Output Vital Signs: Vital Signs x48h Temp Pulse Resp BP Pulse Ox 02/12/18 08:20 36.8 C 74 16 95/57 L 100 02/12/18 04:30 36.7 C 76 16 124/66 100 Intake & Output: Intake & Output 02/09/18 02/10/18 02/11/18 02/12/18 23:59 23:59 23:59 23:59 Intake Total 100 1173.333 Output Total 250 800 Balance 100 923.333 -800 - Lab Results Fish Bones: 02/12/18 05:21 Other Labs: Lab Results x24hrs 02/12/18 Range/Units 05:21 WBC 13.6 H (4.8-10.8) x10^3/uL RBC 2.99 L (4.20-5.40) 10^6/uL Hgb 9.3 L (12.0-16.0) g/dL Hct 27.6 L (37.0-47.0) % MCV 92.2 (81.0-99.0) fL MCH 31.0 (27.0-31.0) pg MCHC 33.6 (32.0-36.0) g/dL RDW 16.0 H (12.0-15.0) % Plt Count 191 (130-450) 10^3/uL MPV 8.7 (7.9-10.8) fL Neut # (Auto) 10.2 H (1.5-6.6) 10^3/uL Lymph # (Auto) 2.3 (1.5-3.5) 10^3/uL [place] # (Auto) 1.0 (0.0-1.0) 10^3/uL Eos # (Auto) 0.1 (0.0-0.7) 10^3/uL Baso # (Auto) 0.0 (0.0-0.1) 10^3/uL Absolute Nucleated RBC 0.00 x10^3/uL Nucleated RBC % 0.0 /100WBC
[2018-02-12] MEDS: DOCUSATE SODIUM 100 MG CAPSULE PO SCH ×2 (19:42→22:57)
[2018-02-13] MEDS: DOCUSATE SODIUM 100 MG CAPSULE PO SCH (07:57)
[2018-02-13] MEDS: IBUPROFEN 800 MG TABLET PO PRN (07:57)
--- NOTE | 2018-02-13 09:41 | Discharge Plan ---
Discharge Plan Disposition: 01 Home, Self Care Diet: Regular Activity Restrictions: No sex or strenuous activity x 6 wks Shower Restrictions: No Driving Restrictions: Yes (2 weeks) No Smoking: If you smoke, Please STOP! Call for help.
--- NOTE | 2018-02-13 09:45 | DISCHARGE SUMMARY ---
"Discharge Summary Admit Date: 02/10/18 Discharge Date: 02/13/18 Discharging Provider: CAROLINA Code Status: Attempt Resuscitation Condition at Discharge: Good - DIAGNOSES Admission Diagnoses: LABOR Discharge Diagnoses with Status of Each Condition: LABOR, GOOD OUTLET FORCEPS DELIVERY, GOOD CONDITION - HPI History of Present Illness: 27 y.o. EDC 02/14/18 EGA 39 3/7 weeks admitted in early labor at 3/70/-3/VTX , CLEMENTEI (2209 hours) with Category I tracing, GBS +. She was previously scheduled to come in for cervical ripening but found to be mary jane q2-4 min. spontaneously and with favorable cervix. Admitted for delivery. PNC has been essentially unremarkable except for the following: # Isolated echogenic cardiac focus, normal harmony testing #GERD: Zantac qd # Pap ASC cannot exclude HSIL: High Risk HPV testing negative # RUBELLA NON-IMMUNE Labs: (08/06/17 and 08/07/17): MBT O POS PNAS NEG GC/CT NEG X 2 (11/30/17): HCT 29.8 PLT 262 RPR NR RUBELLA NON-IMMUNE HBSAG NR HIV NEG UA NEG 1 HR GTT 73 TDAP GIVEN 12/11/17 (12/26/17) GBS POS - CONSULTS | PROCEDURES Procedures: AUGMENTATION OF LABOR GBS ANTIBIOTIC PROPHYLAXIS EPIDURAL ANESTHESIA OUTLET FORCEPS DELIVERY VAGINAL LACERATION REPAIR - ALLERGIES Allergies/Adverse Reactions: Allergies Allergy/AdvReac Type Severity Reaction Status Date / Time No Known Drug Allergies Allergy Verified 12/19/17 14:22 - MEDICATIONS Home Medications: Ambulatory Orders Medication Instructions Recorded Confirmed Acetaminophen [Tylenol] 325 mg PO PRN PRN 12/19/17 12/19/17 Pnv95/Ferrous Fumarate/FA 1 tab PO DAILY 12/19/17 12/19/17 [ Tablet] Ibuprofen [Motrin] 800 tab PO Q8H PRN 02/13/18 02/13/18 - PHYSICAL EXAM AT DISCHARGE General Appearance: positive: No acute distress, Alert Eyes Bilateral: positive: Normal inspection ENT: positive: ENT inspection nml Neck: positive: Nml inspection Abdomen: positive: Non-tender, Other (Ux firm U-6 and NT) Skin: positive: Color nml, No rash, Warm Extremities: positive: Non-tender, Full ROM, Nml appearance Neurologic/Psychiatric: positive: Oriented x3 - LABS Result Diagrams: 02/12/18 05:21 - FOLLOW UP Follow Up: Follow up 6 weeks in [place] as planned (moving to [place])"
[2018-02-13 16:39] VITALS: BP 122/82
[2018-02-13] MEDS ORDERED: MEASLES,MUMPS & RUBELLA VACC 0.5 ML VIAL SUBQ ONE (16:56)
--- NOTE | 2018-02-13 17:45 | Labor Flowsheet ---
Labor Flowsheet Datetime Report Generated by CPN: 02/13/2018 17:44 Datetime: 02/13/2018 16:26 VITAL SIGNS NBP Sys/Sanjuanita/Mean (mmHg): 122 : 82 : 91 Pulse: 68 LaborFlag: Labor Datetime: 02/12/2018 19:29 SpO2 (%): 100 Datetime: 02/11/2018 18:58 UTERINE ACTIVITY Monitor Mode: External Frequency (min): 2-3 Quality: Strong Duration (sec): 60 Pattern: Normal: <= 5 Contractions in 10 Minutes Resting Tone (Palpate): Relaxed Contraction Comments: pt pushing with contractions ASSESSMENT A Monitor Mode: Internal Scalp Electrode FHR Baseline Rate : 130 Variability: Moderate 6-25 bpm Accelerations: None Decelerations: Variable; Prolonged Category: Category II Oxygen Amount (LPM): 10 Oxygen Method: Non-Rebreather Datetime: 02/11/2018 18:56 Communication Comments: Forceps applied by Tillerton Datetime: 02/11/2018 18:18 Patient Position/Activity: Left Lateral Datetime: 02/11/2018 18:15 Actions for Decelerations: Side to Side; Provider Notified Datetime: 02/11/2018 18:02 COMMUNICATION Communication: Provider at Bedside Datetime: 02/11/2018 17:58 I/O Interventions: Straight Cath (ml) @ 200 Datetime: 02/11/2018 17:57 Patient Care Comments: pt pushing Datetime: 02/11/2018 17:39 Monitor Interventions for FHR: FSE Applied Datetime: 02/11/2018 17:30 Anesthesia Level Check: T9 Datetime: 02/11/2018 17:15 Respirations: 18 Temperature (C): 37.4 Datetime: 02/11/2018 17:13 Station: 3 Exam by: Tillerton Datetime: 02/11/2018 16:44 Monitor Interventions for UA: Blunt Adjusted Datetime: 02/11/2018 16:08 VAGINAL EXAM Dilatation (cm): 10.0 Effacement (%): 100 Datetime: 02/11/2018 16:07 Strip Reviewed by: Tillerton Datetime: 02/11/2018 15:59 Resting Tone IUP (mmHg): 10 Intensity IUP (mmHg): 35-60 Datetime: 02/11/2018 15:51 MEDICATIONS Pitocin (milliunits): Discontinued Datetime: 02/11/2018 15:25 Anesthesia Comments: Castaneda present for a bolus Datetime: 02/11/2018 15:01 Pitocin Checklist: At Least 1 Acceleration of 15 bpm x 15 Seconds in 30 Minutes or Adequate Variabi lity; No More than 1 Late Deceleration Occurred in Past 30 Minutes; No More than 2 Variable Decelerat ions > 60 Seconds in Duration and decreasing >60 bpm in 30 minutes; No More than 5 Uterine Contractio ns in 10 Minutes for any 20 Minute Interval; Uterus Palpates Soft between Contractions; IUPC Resting Tone less than 25 mmHg Datetime: 02/11/2018 13:30 Comments: Dr. Clifton reviewed strip Datetime: 02/11/2018 12:58 Epidural Procedure Other: Pump Started Datetime: 02/11/2018 12:46 Epidural Procedure: Test Dose Datetime: 02/11/2018 12:36 Epidural Positioning: Sitting Datetime: 02/11/2018 12:30 Anesthesia Interview: W Datetime: 02/11/2018 12:29 PROCEDURE TIME OUT Procedure Verify: Correct Patient Identity; Correct Side and Site are Marked; Accurate Procedure Co nsent Form; Agreement on Procedure to be Done; Correct Patient Position; Relevant Images and Results are Properly Labeled and Displayed; Addressed Need to Administer Antibiotics or Fluids for Irrigation ; Safety Precautions Based on Patient History or Medication Use ANESTHESIA Anesthesia Plans: Local Datetime: 02/11/2018 12:19 PAIN Pain Scale: 5 Pain Presence: Intermittent Pain Type: Cramping Pain Location: Abdomen Pain Coping: Breathing Through Contractions Pain Assessment Comments: Pt requests epidural Comfort Measures: Anesthesia Notified Datetime: 02/11/2018 12:00 MONTEVIDEO UNITS (Computed) IUPC Average Intensity: 50 IUPC Average Resting Tone: 10 Datetime: 02/11/2018 11:40 Temperature Route: Oral Datetime: 02/11/2018 11:30 Membrane Status: Ruptured Membranes Ruptured Date/Time: 02/11/2018 11:30 Membranes Rupture Method: Artificial Amniotic Fluid Color: Clear Amniotic Fluid Amount: Large Amniotic Fluid Odor: Normal Vaginal Bleeding: None Datetime: 02/11/2018 07:47 Stage of : Labor Datetime: 02/11/2018 06:58 Cervix, Consistency: Soft Cervix, Position: Posterior Datetime: 02/11/2018 05:43 Antibiotics: Ampicillin IV 1 Gm Datetime: 02/11/2018 04:42 Pain Relief Measures: Comfort Measures Hygiene: Complete Bath Datetime: 02/11/2018 02:32 Medication Comments: Ranitidine 150mg PO Datetime: 02/11/2018 02:20 Provider Notified (Name): Dr. Dominic Notification Reason: Patient Request Datetime: 02/11/2018 00:30 FHR Baseline Changes: No Baseline Change Datetime: 02/10/2018 23:44 Analgesics/Sedatives: Fentanyl (mcg) @ 50 Datetime: 02/10/2018 22:38 PATIENT CARE IV/Blood Work: IV Saline Locked Datetime: 02/10/2018 18:45 MATERNAL ASSESSMENT Level of Consciousness: Fully Conscious Headache: Denies
== END 2018-02-13 17:20 | disposition home or self-care (01) | DRG 775 ==
LOC: WFO 16:58 → FBP 17:00 → WFO 17:20 → FBP 17:21 → OBSVTOIN 02-11 09:19 → FBP 02-13 12:49
PROVIDERS: ADMIT Obstetrics & Gynecology; ATTEND Obstetrics & Gynecology
PROC: 10D07Z3 Extraction of Products of Conception, Low Forceps, Via Natural or Artificial Opening (ICD-10-PCS; principal; 2018-02-11)
PROC: 10907ZC Drainage of Amniotic Fluid, Therapeutic from Products of Conception, Via Natural or Artificial Opening (ICD-10-PCS; 2018-02-11)
PROC: 10H07YZ Insertion of Other Device into Products of Conception, Via Natural or Artificial Opening (ICD-10-PCS; 2018-02-11)
PROC: 0HQ9XZZ Repair Perineum Skin, External Approach (ICD-10-PCS; 2018-02-11)
DX: O99.824 Streptococcus B carrier state complicating childbirth (principal); Z37.0 Single live birth; O76 Abnormality in fetal heart rate and rhythm complicating labor and delivery; O70.0 First degree perineal laceration during delivery; O99.62 Diseases of the digestive system complicating childbirth; K21.9 Gastro-esophageal reflux disease without esophagitis; Z3A.39 39 weeks gestation of pregnancy; Z28.3 Underimmunization status
CPT/HCPCS: 36415; 85025; 86780; 96365; 96366; 96375

== ENCOUNTER 2018-02-24 08:58 | Emergency (ER) | payer OTHER ==
[2018-02-24 09:25] VITALS: BP 103/68
[2018-02-24 10:02] LABS: BASOPHILS # (AUTO) 0.1 10^3/uL (0.0-0.1); BASOPHILS % (AUTO) 0.6 %; EOSINOPHILS % (AUTO) 0.2 %; HGB - HEMOGLOBIN 12.2 g/dL (12.0-16.0); LYMPHOCYTES # (AUTO) 1.3 10^3/uL (1.5-3.5); LYMPHOCYTES % (AUTO) 8.4 %; MEAN CORPUSCULAR HEMOGLOBIN 30.2 pg (27.0-31.0); MEAN CORPUSCULAR HGB CONC 33.1 g/dL (32.0-36.0); MEAN CORPUSCULAR VOLUME 91.3 fL (81.0-99.0); MEAN PLATELET VOLUME 8.1 fL (7.9-10.8); MONOCYTES # (AUTO) 0.7 10^3/uL (0.0-1.0); MONOCYTES % (AUTO) 4.6 %; NEUTROPHILS # (AUTO) 13.5 10^3/uL (1.5-6.6); NEUTROPHILS % (AUTO) 86.2 %; PLT - PLATELET COUNT 356 10^3/uL (130-450); RED BLOOD COUNT 4.06 10^6/uL (4.20-5.40); RED CELL DISTRIBUTION WIDTH 15.8 % (12.0-15.0); WHITE BLOOD COUNT 15.6 x10^3/uL (4.8-10.8)
[2018-02-24 10:05] LABS: CALCIUM 9.2 mg/dL (8.5-10.3); CREATININE 0.8 mg/dL (0.4-1.0)
--- NOTE | 2018-02-24 10:47 | XRAY Report ---
Procedure Date: 02/24/2018 Accession Number: [id number] / [id number] Procedure: XR - Chest 2 View X-Ray CPT Code: 29999 FULL RESULT: EXAM: CHEST RADIOGRAPHY EXAM DATE: 02/24/2018 10:20 AM. CLINICAL HISTORY: Post fever cough. COMPARISON: None. TECHNIQUE: 2 views. FINDINGS: Lungs/Pleura: Minimal left basal opacity, atelectasis versus infiltrate. No significant pleural effusion or evidence of pneumothorax. Mediastinum: Heart and mediastinal contours are unremarkable. Other: None. IMPRESSION: Minimal left basal opacity, atelectasis versus infiltrate. RADIA
--- NOTE | 2018-02-24 11:12 | ED Physician Documentation ---
History of Present Illness - Stated complaint Stated Complaint: FEMALE - Chief complaint Chief Complaint: Fever - Additonal information Additional information: hx from pt healthy 27 y/o female 13 days s/p GBS + had at least 2 doses of ab in labor had an epidural was well utnil 4 days ago developed fever t max 101.3 chills and rigors mild MAGAÑA cough some abd discomfort no rash no back pain no vag discharge bleeding has slowed and mild odor no sig breast pain Review of Systems Constitutional: reports: Fever, Chills Throat: denies: Sore throat Cardiac: denies: Chest pain / pressure Respiratory: reports: Cough. denies: Dyspnea GI: reports: Abdominal Pain (pelvic) : reports: Vaginal bleeding (slowing). 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 : None HEENT: None Psych: None Musculoskeletal: None Derm: None - Past Surgical History Past Surgical History: No - Present Medications Home Medications: Ambulatory Orders Medication Instructions Recorded Confirmed Acetaminophen [Tylenol] 325 mg PO PRN PRN 12/19/17 12/19/17 Pnv95/Ferrous Fumarate/FA 1 tab PO DAILY 12/19/17 12/19/17 [ Tablet] Ibuprofen [Motrin] 800 tab PO Q8H PRN 02/13/18 02/13/18 Cephalexin [Keflex] 500 mg PO Q6H #28 capsule 02/24/18 - Allergies Allergies/Adverse Reactions: Allergies Allergy/AdvReac Type Severity Reaction Status Date / Time No Known Drug Allergies Allergy Verified 02/24/18 09:25 - Social History Does the pt smoke?: No Smoking Status: Never smoker Does the pt drink ETOH?: Yes Does the pt have substance abuse?: No - Immunizations Immunizations are current?: Yes - POLST Patient has POLST: No POLST Status: Full Code PD ED PE NORMAL - Vitals Vital signs reviewed: Yes (tachy) - HEENT HEENT: Atraumatic - Neck Neck: Supple, no meningeal sign - Cardiac Cardiac: RRR, No murmur - Respiratory Respiratory: No respiratory distress, Clear bilaterally - Abdomen Abdomen: Soft, Non tender, Other (uteurs lwo in pelvis and miminally TTP) - Female Female : Other (external epis seems to be healing well, no bleeding tissue or abn odor) - Back Back: No CVA TTP, Other (no swelling or erythema to epidural site) - Derm Derm: Normal color - Neuro Neuro: Alert and oriented X 3, No motor deficit Results - Vitals Vitals: Vital Signs - 24 hr 02/24/18 09:21 Temperature 37.3 C Heart Rate 109 H Respiratory 18 Rate Blood Pressure 103/68 O2 Saturation 97 Oxygen O2 Source Room air - Labs Labs: Laboratory Tests 02/24/18 02/24/18 02/24/18 09:45 09:45 09:45 WBC 15.6 H RBC 4.06 L Hgb 12.2 Hct 37.0 MCV 91.3 MCH 30.2 MCHC 33.1 RDW 15.8 H Plt Count 356 MPV 8.1 Neut # (Auto) 13.5 H Lymph # (Auto) 1.3 L [place] # (Auto) 0.7 Eos # (Auto) 0.0 Baso # (Auto) 0.1 Absolute Nucleated RBC 0.00 Nucleated RBC % 0.0 Sodium 134 L Potassium 3.7 Chloride 102 Carbon Dioxide 23 Anion Gap 9.0 BUN 10 Creatinine 0.8 Estimated GFR (MDRD) 86 L Glucose 112 H Lactic Acid 1.3 Calcium 9.2 Urine Color Urine Clarity Urine pH Ur Specific [place] Urine Protein Urine Glucose (UA) Urine Ketones Urine Occult Blood Urine Nitrite Urine Bilirubin Urine Urobilinogen Ur Leukocyte Esterase Urine RBC Urine WBC Ur Squamous Epith Cells Urine Bacteria Urine Mucus Ur Microscopic Review Urine Culture Comments 02/24/18 10:11 WBC RBC Hgb Hct MCV MCH MCHC RDW Plt Count MPV Neut # (Auto) Lymph # (Auto) [place] # (Auto) Eos # (Auto) Baso # (Auto) Absolute Nucleated RBC Nucleated RBC % Sodium Potassium Chloride Carbon Dioxide Anion Gap BUN Creatinine Estimated GFR (MDRD) Glucose Lactic Acid Calcium Urine Color YELLOW Urine Clarity CLEAR Urine pH 6.0 Ur Specific [place] <=1.005 Urine Protein NEGATIVE Urine Glucose (UA) NEGATIVE Urine Ketones NEGATIVE Urine Occult Blood SMALL H Urine Nitrite NEGATIVE Urine Bilirubin NEGATIVE Urine Urobilinogen 0.2 (NORMAL) Ur Leukocyte Esterase TRACE H Urine RBC 0-5 Urine WBC 4-5 Ur Squamous Epith Cells FEW Squamous Urine Bacteria Rare Urine Mucus Few Strands Ur Microscopic Review INDICATED Urine Culture Comments INDICATED - Rads (name of study) CXR Radiology: See rad report (per rad L basilar infiltrate, pt states hx L pleurisy , could be scarring?) PD MEDICAL DECISION MAKING - ED course ED course: post delivery tachy febrile but nl BP and lactate neg has SIRS but does seem to have sepsis at this time based on hx exam and work up, source seems to be mastitis, possible infiltrate on CXR per rad but very kinimal and could be atelectasis or scarring to will 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 next week for fup - Sepsis Event Vital Signs: Vital Signs - 24 hr 02/24/18 09:21 Temperature 37.3 C Heart Rate 109 H Respiratory 18 Rate Blood Pressure 103/68 O2 Saturation 97 Oxygen O2 Source Room air Departure - Departure Disposition: 01 Home, Self Care Clinical Impression: Mastitis Condition: Good Instructions: ED Breast Infec Follow-Up: Fer Hernandez MD [Provider Admit Priv/Credential] - (next week for a recheck ) Prescriptions: Cephalexin [Keflex] 500 mg PO Q6H #28 capsule Comments: Tylenol for pain and fever Take all the antibiotics as prescribed even if better sooner Do continue to breast feed Follow up with OB clinic next week for a recheck Return sooner if worse - sometimes patients need to be admitted for IV antibiotics
[2018-02-24] MEDS: SODIUM CHLORIDE 0.9% 1,000 ML IV ONE (11:25)
[2018-02-24 11:33] LABS: BILIRUBIN,URINE NEGATIVE (NEGATIVE); GLUCOSE, URINE (UA) NEGATIVE (NEGATIVE); KETONES,URINE (UA) NEGATIVE (NEGATIVE); LEUKOCYTE ESTERASE, URINE TRACE (NEGATIVE); NITRITE,URINE NEGATIVE (NEGATIVE); OCCULT BLOOD,URINE SMALL (NEGATIVE); PROTEIN,URINE NEGATIVE (NEGATIVE); UROBILINOGEN,URINE 0.2 (NORMAL) E.U./dL (NORMAL)
[2018-02-24 11:40] LABS: CLARITY,URINE CLEAR (CLEAR)
[2018-02-24 11:48] LABS: RBC,URINE 0-5 /HPF (0-5); SQUAMOUS EPITHELIAL CELL,UR FEW Squamous (<= Few)
[2018-02-24 11:49] LABS: BACTERIA,URINE Rare /HPF (None Seen); MUCUS,URINE Few Strands
[2018-02-24] MEDS: cephALEXin 250 MG CAPSULE PO STA (13:00)
== END 2018-02-24 13:07 | disposition home or self-care (01) ==
LOC: ED 08:58
DX: N61.0 Mastitis without abscess (principal)
CPT/HCPCS: 36415; 71046; 80048; 81001; 83605; 85025; 87040; 87086; 99283; A9270; 81003